=== PATIENT | male | born 1995 | race Asian ===

== ENCOUNTER 2017-11-17 04:16 | Emergency (ER) | payer OTHER ==
[2017-11-17] MEDS ORDERED: Ondansetron INJ* 2 MG/ML VIAL ONE (04:27)
[2017-11-17] MEDS ORDERED: NS 0.9% 1000 ML* 1,000 ML IV ONE (04:28)
[2017-11-17] MEDS ORDERED: Ondansetron INJ* 2 MG/ML VIAL IV ONE (04:28)
--- NOTE | 2017-11-17 07:02 | ED ---
Corey Ballesteros Jennifer, scribed for Juancarlos Zhou MD on 11/17/17 at 0432 . Substance Abuse/Use - HPI Summary HPI Summary: The pt is a 22 y/o male who comes to the ED heavily intoxicated tonight. Pt is actively vomiting in the ED and reports a little nausea. He denies pain or injury. Pt is able to give one word or simple answers. LEVEL 5 CAVEAT: HPI limited due to intoxication. - History Of Current Complaint Chief Complaint: EDSubstanceAbuse Stated Complaint: ETOH Time Seen by Provider: 11/17/17 04:22 Hx Obtained From: Patient Ingestion History: Type/Name Of Drug - EtOH Overdose Characteristics: Oral Timing Of Abuse: Binge Use Severity Initially: Moderate Severity Currently: Moderate Aggravating Factor(s): Nothing Alleviating Factor(s): Nothing Associated Signs And Symptoms: Nausea, Vomiting - Allergies/Home Medications Allergies/Adverse Reactions: Allergies Allergy/AdvReac Type Severity Reaction Status Date / Time No Known Allergies Allergy Verified 07/23/17 20:08 PMH/Surg Hx/FS Hx/Imm Hx Endocrine/Hematology History: Denies: Hx Anticoagulant Therapy Cardiovascular History: Denies: Hx Hypertension - Family History Known Family History: Negative: Diabetes - Social History Occupation: Student - [employer] Alcohol Use: Weekly Substance Use Type: Reports: Excessive Caffeine Smoking Status (MU): Never Smoked Tobacco - Additional Comments History Additional Comments: LEVEL 5 CAVEAT: PMH limited due to intoxication. Review of Systems Positive: Other - Intoxicated Positive: Vomiting, Nausea All Other Systems Reviewed And Are Negative: No - Comments Additional Review of Systems Comments: LEVEL 5 CAVEAT: ROS limited due to intoxication. Physical Exam - Summary Physical Exam Summary: Appearance: Arousable Skin: warm, dry, reflects adequate perfusion Head/face: normal, no evidence of trauma to the head Eyes: EOMI, SRUTHI ENT: normal, actively spitting up vomit Neck: supple, non-tender Respiratory: CTA, breath sounds present, no respiratory difficulty Cardiovascular: RRR, pulses symmetrical Abdomen: non-tender, soft Bowel: present Musculoskeletal: normal, strength/ROM intact, no evidence of injury to extremities, moves all extremities spontaneously Neuro: normal, sensory motor intact, A&Ox3 LEVEL 5 CAVEAT: Physical Exam limited due to intoxication. Triage Information Reviewed: Yes Vital Signs On Initial Exam: Initial Vitals Temp Pulse Resp BP Pulse Ox 35.9 C 69 18 105/76 100 11/17/17 04:21 11/17/17 04:21 11/17/17 04:21 11/17/17 04:21 11/17/17 04:21 Vital Signs Reviewed: Yes Diagnostics - Vital Signs Vital Signs Temp Pulse Resp BP Pulse Ox 11/17/17 06:30 66 17 98/47 96 11/17/17 06:00 67 14 104/64 100 11/17/17 05:30 69 18 109/70 99 11/17/17 05:00 67 16 107/64 99 11/17/17 04:48 67 16 108/74 100 11/17/17 04:41 66 15 99 11/17/17 04:21 35.9 C 69 18 105/76 100 - Laboratory Lab Statement: Any lab studies that have been ordered have been reviewed, and results considered in the medical decision making process. Re-Evaluation - Re-Evaluation First Eval Change: Improved - pt awake and moving about ED, clear speech/steady gait Course/Dx - Course Course Of Treatment: No evidence for trauma. Tx for nausea and given fluids. Sobered in ED. Demonstrated functional capacity after sobering. Safe ride home. Rx for nausea. - Diagnoses Provider Diagnoses: Alcohol intoxication, Vomiting Discharge - Discharge Plan Condition: Good Disposition: HOME Prescriptions: Ondansetron ODT TAB* [Zofran 4 MG Odt TAB*] 4 mg PO Q6H PRN #6 tab.odt PRN Reason: Nausea Patient Education Materials: Alcohol Intoxication (ED) Referrals: [facility] - [facility]ushil [Primary Care Provider] - Additional Instructions: Do not drive or use machinery today. Never drink alcohol to excess. Call today for follow up with the [facility]. Return if worse, new symptoms or other concerns. The documentation as recorded by the Corey cotton Jennifer accurately reflects the service I personally performed and the decisions made by , Juancarlos Zhou MD.
[2017-11-17 07:58] VITALS: BP 108/54
== END 2017-11-17 07:42 | disposition home or self-care (01) ==
LOC: ED 04:16
DX: F10.129 Alcohol abuse with intoxication, unspecified (principal); R11.10 Vomiting, unspecified
CPT/HCPCS: 96360; 96372; 96374; 99283; J2405